=== PATIENT | female | born 1965 | race Caucasian/White ===

== ENCOUNTER 2017-07-07 16:10 | Emergency (ER) | payer MEDICAID ==
[~2017-07-07] VITALS: Ht 167.6 cm; Wt 67.0 kg
[2017-07-07 16:15] VITALS: BP 134/78
== END 2017-07-07 17:30 | disposition left against medical advice (07) ==
LOC: ED 16:57
DX: R07.0 Pain in throat (principal); F17.200 Nicotine dependence, unspecified, uncomplicated
CPT/HCPCS: 99283

== ENCOUNTER 2017-07-26 09:00 | Emergency (ER) | payer MEDICAID ==
[~2017-07-26] VITALS: Ht 157.5 cm; Wt 71.7 kg
[2017-07-26 09:08] VITALS: BP 131/75
[2017-07-26] MEDS ORDERED: BACITRACIN ZINC OINT 500U/GM, 0.9 GM ONE (09:40)
== END 2017-07-26 10:48 | disposition home or self-care (01) ==
LOC: ED 09:00
DX: S50.12XA Contusion of left forearm, initial encounter (principal); F17.210 Nicotine dependence, cigarettes, uncomplicated; Z59.0 Homelessness; Y04.8XXA Assault by other bodily force, initial encounter; Y93.89 Activity, other specified; Y92.89 Other specified places as the place of occurrence of the external cause; Y99.8 Other external cause status
CPT/HCPCS: 71020; 99284

== ENCOUNTER 2017-08-02 15:49 | Emergency (ER) | payer MEDICAID ==
[~2017-08-02] VITALS: Ht 157.5 cm; Wt 73.0 kg
[2017-08-02 15:51] VITALS: BP 120/75
[2017-08-02] MEDS ORDERED: CYCLOBENZAPRINE 10 MG TABLET ONE (16:09)
[2017-08-02] MEDS ORDERED: KETOROLAC 30 MG/1 ML ONE (16:09)
[2017-08-02] MEDS ORDERED: CYCLOBENZAPRINE 10 MG TABLET PO ONE (16:30)
[2017-08-02] MEDS ORDERED: KETOROLAC 30 MG/1 ML IM ONE (16:30)
[2017-08-05] MEDS ORDERED: QUET100T4 PO (22:51)
[2017-08-05] MEDS ORDERED: HYDR-3307 PO (22:51)
[2017-08-05] MEDS ORDERED: TRAZ100T15 PO (22:51)
== END 2017-08-02 17:39 | disposition home or self-care (01) ==
LOC: ED 16:22
DX: S39.012A Strain of muscle, fascia and tendon of lower back, initial encounter (principal); X58.XXXA Exposure to other specified factors, initial encounter; Y93.89 Activity, other specified; Y92.89 Other specified places as the place of occurrence of the external cause; Y99.8 Other external cause status
CPT/HCPCS: 72110; 96372; 99284; J1885

== ENCOUNTER 2017-08-04 19:52 | Emergency (ER) | payer MEDICAID ==
[~2017-08-04] VITALS: Ht 157.5 cm; Wt 73.2 kg
[2017-08-04 20:03] VITALS: BP 126/79
[2017-08-04] MEDS ORDERED: KETOROLAC 30 MG/1 ML ONE (20:55)
[2017-08-04] MEDS ORDERED: KETOROLAC 30 MG/1 ML IM ONE (21:00)
[2017-08-05] MEDS ORDERED: HYDR-3307 PO (22:51)
[2017-08-05] MEDS ORDERED: TRAZ100T15 PO (22:51)
[2017-08-05] MEDS ORDERED: QUET100T4 PO (22:51)
== END 2017-08-04 21:06 | disposition home or self-care (01) ==
LOC: ED 20:32
DX: S39.012A Strain of muscle, fascia and tendon of lower back, initial encounter (principal); X58.XXXA Exposure to other specified factors, initial encounter; Y93.89 Activity, other specified; Y92.89 Other specified places as the place of occurrence of the external cause; Y99.8 Other external cause status
CPT/HCPCS: 96372; 99283; J1885

== ENCOUNTER 2017-08-10 04:58 | Emergency (ER) | payer MEDICAID ==
[~2017-08-10] VITALS: Ht 165.1 cm; Wt 70.9 kg
[~2017-08-10 04:58] MED LIST: HYDR-3307 PO; QUET100T4 PO; TRAZ100T15 PO
[2017-08-10] MEDS ORDERED: ALBUTEROL/IPRATROPIUM 2.5MG/0.5MG, 3 ML ONE (05:57)
[2017-08-10] MEDS ORDERED: ALBUTEROL/IPRATROPIUM 2.5MG/0.5MG, 3 ML NPPB ONE (06:00)
[2017-08-10] MEDS ORDERED: ACETAMINOPHEN 500 MG TABLET PO ONE (06:30)
[2017-08-10 06:32] VITALS: BP 134/64
== END 2017-08-10 06:46 | disposition home or self-care (01) ==
LOC: ED 05:17
DX: J20.8 Acute bronchitis due to other specified organisms (principal)
CPT/HCPCS: 71010; 94640; 99283; J7512; J7620

== ENCOUNTER 2017-09-15 16:22 | Emergency (ER) | payer MEDICAID ==
[~2017-09-15] VITALS: Ht 157.5 cm; Wt 66.0 kg
[2017-09-15 18:51] VITALS: BP 128/84
== END 2017-09-15 19:25 | disposition home or self-care (01) ==
LOC: ED 19:03
DX: J44.9 Chronic obstructive pulmonary disease, unspecified (principal); J20.9 Acute bronchitis, unspecified; F17.200 Nicotine dependence, unspecified, uncomplicated; F10.10 Alcohol abuse, uncomplicated; Z88.8 Allergy status to other drugs, medicaments and biological substances
CPT/HCPCS: 71046; 99284

== ENCOUNTER 2017-10-26 19:05 | Emergency (ER) | payer MEDICAID ==
[~2017-10-26] VITALS: Ht 157.5 cm; Wt 70.9 kg
[2017-10-26 19:09] VITALS: BP 121/75
[2017-10-26 19:40] LABS: HCG UR SG 1.013 (1.003-1.030); MICROSCOPIC AUTO
[2017-10-26 19:42] LABS: CULTURE INDICATED? YES
[2017-10-26 22:59] LABS: CLUE CELLS NONE SEEN (NONE SEEN); WET PREP WBCS FEW (FEW)
[2017-10-26] MEDS ORDERED: CEFTRIAXONE 250 MG IM ONE (23:30)
[2017-10-26] MEDS ORDERED: AZITHROMYCIN 500 MG TABLET PO ONE (23:30)
[2017-10-26] MEDS ORDERED: CEFTRIAXONE 250 MG ONE (23:44)
[2017-10-26] MEDS ORDERED: AZITHROMYCIN 250 MG TABLET ONE (23:45)
== END 2017-10-27 00:01 | disposition home or self-care (01) ==
LOC: ED 22:36
DX: R30.0 Dysuria (principal); N89.8 Other specified noninflammatory disorders of vagina
CPT/HCPCS: 81001; 81025; 87086; 87210; 87491; 87591; 87808; 96372; 99284; J0696

== ENCOUNTER 2018-02-10 00:11 | Emergency (ER) | payer MEDICAID ==
[~2018-02-10] VITALS: Ht 154.9 cm; Wt 67.2 kg
[2018-02-10 00:17] VITALS: BP 132/74
== END 2018-02-10 02:20 | disposition home or self-care (01) ==
LOC: ED 02:17
DX: S22.31XA Fracture of one rib, right side, initial encounter for closed fracture (principal); Z72.89 Other problems related to lifestyle; Z60.9 Problem related to social environment, unspecified; Z91.14 Patient's other noncompliance with medication regimen; X58.XXXA Exposure to other specified factors, initial encounter; Y93.89 Activity, other specified; Y92.89 Other specified places as the place of occurrence of the external cause; Y99.8 Other external cause status
CPT/HCPCS: 99284

== ENCOUNTER 2018-05-02 13:57 | Emergency (ER) | payer MEDICAID ==
[~2018-05-02] VITALS: Ht 154.9 cm; Wt 65.0 kg
[~2018-05-02 13:57] MED LIST changes: +TRAZ-137 PO; -TRAZ100T15 PO
[2018-05-02] MEDS ORDERED: hydrOXYzine 50 MG/ML IM ONE (14:30)
[2018-05-02] MEDS ORDERED: hydrOXYzine 25 MG/ML IM ONE (14:30)
[2018-05-02 14:54] VITALS: BP 134/71
== END 2018-05-02 15:11 | disposition home or self-care (01) ==
LOC: ED 14:30
DX: F41.1 Generalized anxiety disorder (principal); R07.89 Other chest pain; Z72.9 Problem related to lifestyle, unspecified; Z59.0 Homelessness
CPT/HCPCS: 36415; 71045; 84484; 93005; 96372; 99285; J3410

== ENCOUNTER 2018-08-10 16:48 | Emergency (ER) | payer MEDICAID ==
[~2018-08-10] VITALS: Ht 154.9 cm; Wt 62.7 kg
[2018-08-10 17:01] VITALS: BP 112/50
[2018-08-10] MEDS ORDERED: ASPIRIN 81 MG TABLET CHEW ONE (17:24)
[2018-08-10] MEDS ORDERED: LORazepam 1MG TABLET ONE (17:25)
[2018-08-10] MEDS ORDERED: ASPIRIN 81 MG TABLET CHEW PO ONE (17:30)
[2018-08-10] MEDS ORDERED: LORazepam 1MG TABLET PO ONE (17:30)
[2018-08-10 17:49] LABS: ALBUMIN 3.5 g/dL (3.4-5.0); ANION GAP 10 mmol/L (5-15); CHLORIDE 109 mmol/L (98-107); CREATININE 0.61 mg/dL (0.55-1.02)
[2018-08-10 17:53] LABS: TROPONIN I < 0.015 ng/mL (0.000-0.045)
[2018-08-10 17:56] LABS: BASOPHILS # (AUTO) 0.16 x10^3/uL (0-0.1); BASOPHILS % (AUTO) 2 % (0-1); EOSINOPHILS # (AUTO) 0.11 x10^3/uL (0-0.4); EOSINOPHILS % (AUTO) 1 % (1-7); LYMPHOCYTES # (AUTO) 3.81 x10^3/uL (1-3.4); LYMPHOCYTES % (AUTO) 41 % (22-44); MD NO; MEAN CORPUSCULAR HEMOGLOBIN 32.7 pg (27.0-34.8); MEAN CORPUSCULAR HGB CONC 33.9 g/dL (32.4-35.8); MEAN CORPUSCULAR VOLUME 96.5 fL (80-100); MEAN PLATELET VOLUME 9.2 fL (7.4-10.4); MONOCYTES % (AUTO) 6 % (2-9); NEUTROPHILS # (AUTO) 4.72 x10^3/uL (1.8-6.8); NEUTROPHILS % (AUTO) 50 % (42-75); PLATELET COUNT 327 x10^3/uL (130-400); RED BLOOD COUNT 4.83 x10^6/uL (3.82-5.3); RED CELL DISTRIBUTION WIDTH 12.6 % (9.6-15.2)
== END 2018-08-10 17:58 | disposition left against medical advice (07) ==
LOC: ED 17:08
DX: F41.1 Generalized anxiety disorder (principal); J44.9 Chronic obstructive pulmonary disease, unspecified
CPT/HCPCS: 36415; 71046; 80048; 82040; 83880; 84484; 85025; 99284

== ENCOUNTER 2019-08-13 15:54 | Emergency (ER) ==
[~2019-08-13] VITALS: Ht 154.9 cm; Wt 67.0 kg
[~2019-08-13 15:54] MED LIST changes: -HYDR-3307 PO; +HYDR-36 PO
--- NOTE | 2019-08-13 16:00 | NUR ---
audio visual equipment rental clerk: Pt not in lobby at this time
--- NOTE | 2019-08-13 16:05 | NUR ---
steak tenderizer machine: Pt not in lobby at this time
[2019-08-13 16:19] VITALS: BP 136/71
--- NOTE | 2019-08-13 16:19 | NUR ---
boilermaker fitter: pt returned to lobby at this time
--- NOTE | 2019-08-13 17:34 | NUR ---
FIREFIGHTING EQUIPMENT SPECIALIST: PT TO ROOM FROM [facility]
--- NOTE | 2019-08-13 17:42 | NUR ---
first contact with pt. pt states "I was kicked out of [facility], I've got an infection that's gone down to my bone. I got an MRI this morning and I went outside to smoke and I got kicked out of their system. They want to take off my finger and I need a second opinion" pt's aox4. resps even and unlabored. bp/spo2 monitors in place. call light within reach.
--- NOTE | 2019-08-13 17:57 | NUR ---
pt amb to br with steady gait.
--- NOTE | 2019-08-13 18:14 | NUR ---
edmd at bedside to evaluate at this time.
[2019-08-13 18:49] LABS: BASOPHILS # (AUTO) 0.05 x10^3/uL (0-0.1); BASOPHILS % (AUTO) 0 % (0-1); EOSINOPHILS # (AUTO) 0.27 x10^3/uL (0-0.4); EOSINOPHILS % (AUTO) 3 % (1-7); LYMPHOCYTES # (AUTO) 2.85 x10^3/uL (1-3.4); LYMPHOCYTES % (AUTO) 26 % (22-44); MD NO; MEAN CORPUSCULAR HEMOGLOBIN 31.7 pg (27.0-34.8); MEAN CORPUSCULAR HGB CONC 32.8 g/dL (32.4-35.8); MEAN CORPUSCULAR VOLUME 96.6 fL (80-100); MEAN PLATELET VOLUME 7.9 fL (7.4-10.4); MONOCYTES % (AUTO) 8 % (2-9); NEUTROPHILS # (AUTO) 6.84 x10^3/uL (1.8-6.8); NEUTROPHILS % (AUTO) 63 % (42-75); PLATELET COUNT 293 x10^3/uL (130-400); RED BLOOD COUNT 4.52 x10^6/uL (3.82-5.3); RED CELL DISTRIBUTION WIDTH 12.7 % (9.6-15.2)
--- NOTE | 2019-08-13 18:51 | NUR ---
snacks provided at this time. edmd ok'd to give her something to eat.
[2019-08-13 18:59] LABS: ANION GAP 8 mmol/L (5-15); C-REACTIVE PROTEIN, QUANT 0.14 mg/dL (0.02-0.49); CALCIUM 8.6 mg/dL (8.5-10.1); CHLORIDE 107 mmol/L (98-107); CREATININE 0.73 mg/dL (0.55-1.02)
[2019-08-13 19:29] LABS: HCT (SEDRATE) 43.7 % (34.6-47.8)
== END 2019-08-13 20:25 | disposition left against medical advice (07) ==
LOC: ED 18:12
DX: M79.644 Pain in right finger(s) (principal); G89.29 Other chronic pain; F17.210 Nicotine dependence, cigarettes, uncomplicated; J44.9 Chronic obstructive pulmonary disease, unspecified
CPT/HCPCS: 36415; 80048; 85025; 85651; 86140; 99283

== ENCOUNTER 2019-08-22 03:17 | Emergency (ER) | payer MEDICAID ==
[~2019-08-22] VITALS: Ht 160 cm; Wt 60.0 kg
[2019-08-22 03:20] VITALS: BP 176/86
--- NOTE | 2019-08-22 03:41 | NUR ---
PATIENT NOT IN THE LOBBY. NO ANSWER.
--- NOTE | 2019-08-22 03:41 | NUR ---
PER REGISTRATION PATIENT WALKED OUT AFTER TRIAGE. NOT IN THE LOBBY.
== END 2019-08-22 03:44 | disposition left against medical advice (07) ==
LOC: ED 03:35
DX: R52 Pain, unspecified (principal); Z53.21 Procedure and treatment not carried out due to patient leaving prior to being seen by health care provider

== ENCOUNTER 2019-09-04 17:00 | Emergency (ER) | payer MEDICAID ==
--- NOTE | 2019-09-04 17:07 | NUR ---
pt not in lobby at this time
--- NOTE | 2019-09-04 17:12 | NUR ---
pt not in lobby at this time
--- NOTE | 2019-09-04 17:42 | NUR ---
Pt not in lobby at this time
--- NOTE | 2019-09-04 17:48 | NUR ---
Pt not in lobby at this time
== END 2019-09-04 17:50 | disposition left against medical advice (07) ==
LOC: ED 17:44
DX: Z53.21 Procedure and treatment not carried out due to patient leaving prior to being seen by health care provider (principal)

== ENCOUNTER 2019-09-11 01:53 | Emergency (ER) | payer MEDICAID ==
[~2019-09-11] VITALS: Ht 154.9 cm; Wt 66.9 kg
--- NOTE | 2019-09-11 01:58 | NUR ---
EPIDEMIOLOGY INTERNSHIP: NIL X1
--- NOTE | 2019-09-11 02:35 | NUR ---
THIS IS A 54Y F THAT COMES IN W/ C/O RIGHT FINGER INFECTION X40 DAYS. PT CONNECTED TO MONITORING VSS, NADN
[2019-09-11 02:37] VITALS: BP 140/79
--- NOTE | 2019-09-11 02:47 | NUR ---
XRAY AT BEDSIDE
== END 2019-09-11 03:20 | disposition home or self-care (01) ==
LOC: ED 02:32
DX: G89.29 Other chronic pain (principal); M79.644 Pain in right finger(s); H69.81 Other specified disorders of Eustachian tube, right ear; F10.10 Alcohol abuse, uncomplicated; F17.200 Nicotine dependence, unspecified, uncomplicated; Z72.9 Problem related to lifestyle, unspecified; Z91.14 Patient's other noncompliance with medication regimen; Z75.9 Unspecified problem related to medical facilities and other health care; Y90.9 Presence of alcohol in blood, level not specified
CPT/HCPCS: 99283